=== PATIENT | male | born 1995 | race Two or more races ===

== ENCOUNTER 2023-04-04 03:38 | Emergency (ER) | payer SELFPAY ==
--- NOTE | ~2023-04-04 | CT_ITS ---
Non-contrast CT scan of the Abdomen and Pelvis Clinical indication: Right groin pain Technique: 2.5 mm axial scans were obtained through the abdomen and pelvis without intravenous or or al contrast. Dose reduction technique was used on this scan by utilizing automated exposure control a nd iterative reconstruction technique. The dose-length product (DLP) was 581.22 mGy-cm. Findings: Images through the lung bases reveal no abnormalities. There is a probable 2 mm distal right ureteral stone, with mild right hydroureteronephrosis. No left renal or left ureteral stone. No left hydronephrosis. The liver, spleen, pancreas, gallbladder, and adrenals appear normal. There is no aortic aneurysm. There is no evidence of bowel obstruction. Images through the pelvis were performed. There is no evidence of ascites or lymphadenopathy. Urinary bladder unremarkable. Prostate gland and seminal vesicles are unremarkable. Impression: 2 mm distal right ureteral stone with mild right hydroureteronephrosis. Reviewed, dictated and finalized at [facility]. Impression: 2 mm distal right ureteral stone with mild right hydroureteronephrosis.
[2023-04-04 03:42] VITALS: BP 141/71; PULSE 90; RESP 20; TEMP 36.5; O2SAT 95
[2023-04-04] MEDS: KETOROLAC (*BKC) 60 MG/2 ML VIAL IM (03:55)
[2023-04-04 04:11] VITALS: BP 139/88; PULSE 90; RESP 20; O2SAT 95
[2023-04-04 04:32] LABS: Bilirubin Urine Negative (Negative); Blood Urine 3+ (Negative); Color Urine Yellow (Yellow); Glucose Urine UA Negative (Negative); Ketones Urine Negative (Negative); Leukocyte Esterase Ur Negative LEU/UL (Negative); Nitrate Urine Negative (Negative); Protein Urine 1+ (Negative); Specific Grav Ur >= 1.030 (1.010-1.020); Urobilinogen Urine 0.2 mg/dL (0.2-1.0); pH Urine 5.5 (5.0-8.0)
[2023-04-04 04:39] LABS: Add Urine Microscopic? YES; Amorphous Sediment Urine Heavy; Appearance Urine Turbid (Clear); Bacteria Urine 4+ /hpf; Mucus Urine Heavy /lpf; RBC Urine >75 /hpf (0-2)
--- NOTE | 2023-04-04 04:53 | ED.ABDPAIN ---
HPI - Abdominal Pain General Chief Complaint: Abdominal Pain Stated Complaint: R Testicle Pain Source: patient Mode of arrival: ambulatory Limitations: no limitations History of Present Illness HPI narrative: this is a 28-year-old male that presents with some right flank pain that radiates into his right groin area with some pain that he rates at about a 10/10 with no nausea vomiting no suprapubic tenderness no chest pain no shortness breath no fever chills. MD elicited complaint: abdominal pain and flank pain Onset (ago): hour(s) Pain Consistency: constant Location: R flank and groin Related Data Allergies Allergy/AdvReac Type Severity Reaction Status Date / Time No Known Allergies Allergy Verified 04/04/23 03:42 Review of Systems Review of Systems: All systems reviewed & are unremarkable except as noted in HPI and below PMFSH Past Medical History Medical History Patient denies medical problems Exam Const: General: healthy appearing Nutritional Appearance: well nourished Orientation/consciousness: patient oriented x3 Limitations: no limitations HENMT: Head: normal to inspection Eyes: Conjunctivae: conjunctivae normal Neck: Neck: normal visual inspection Chest: Chest palpation & inspection: normal inspection of the chest Resp: Effort & Inspection: normal respiratory effort Auscultation: clear to auscultation bilaterally Cardio: Rate: regular rate Rhythm: regular rhythm GI: GI Palp: Yes Soft to palpation and Yes Tenderness to palpation present (GI) : General: Yes bladder normal to palpation Testes: Testes normal Urinary Catheter: Urinary Catheter: patent and draining and urine cloudy Back/Spine/Pelvis: Back: CVA tenderness Skin: General skin exam: normal color Rashes: no rashes Neuro: General: patient oriented x3 and moves all extremities Extrem: General: normal to inspection Psych: Mental Status: mental status grossly normal Course Course Emergency Course: patient received IM Toradol and pain has significantly improved has some urine consistent with urinary tract infection and CT scan reviewed with patient which shows a right UVJ 0.2cm stone with mild right hydronephrosis. Vital Signs Vital signs: Vital Signs Temperature 36.5 C 04/04/23 03:42 Pulse Rate 90 04/04/23 03:42 Respiratory Rate 20 04/04/23 03:42 Blood Pressure 141/71 H 04/04/23 03:42 Pulse Oximetry 95 04/04/23 03:42 Oxygen Delivery Room Air 04/04/23 03:42 Temperature 36.5 C 04/04/23 03:42 Pulse Rate 90 04/04/23 04:11 Respiratory Rate 20 04/04/23 04:11 Blood Pressure 139/88 04/04/23 04:11 Pulse Oximetry 95 04/04/23 04:11 Oxygen Delivery Room Air 04/04/23 04:11 MDM - Abdominal Pain Lab Data Labs: Lab Results 04/04/23 Range/Units 03:48 Urine Color Yellow (Yellow) Urine Appearance Turbid A (Clear) Urine pH 5.5 (5.0-8.0) Ur Specific [place] >= 1.030 H (1.010-1.020) Urine Protein 1+ H (Negative) Urine Glucose (UA) Negative (Negative) Urine Ketones Negative (Negative) Ur Blood (Man) 3+ H (Negative) Urine Nitrate Negative (Negative) Urine Bilirubin Negative (Negative) Urine Urobilinogen 0.2 (0.2-1.0) mg/dL Leukocyte Esterase Rfl Negative (Negative) VICKIE/UL Urine RBC >75 H (0-2) /hpf Amorphous Sediment Heavy H (None) Urine Bacteria 4+ H (None) /hpf Urine Mucus Heavy H /lpf Critical Care Time Critical Care Time Critical Care Time: No Discharge Plan Discharge Clinical Impression: Urolithiasis Qualifiers: Urinary calculus location: ureter Qualified Code(s): N20.1 - Calculus of ureter Patient Disposition: Home, Self-Care Condition: Stable Instructions: Antibiotic Form, Urinary Tract Infection in Men (ED), Ureteral Stones (ED) Additional Instructions: advised take medicine as prescribed and follow up with primary if symptoms p
[2023-04-04] MEDS: SODIUM CHLORIDE 0.9% IV 1,000 ML 999 ML IV CONT (04:56)
[2023-04-04 05:55] VITALS: BP 132/77; PULSE 80; RESP 20; TEMP 36.6; O2SAT 95
== END 2023-04-04 05:56 | disposition home or self-care (01) ==
PROVIDERS: Emergency Provider Emergency Medicine
DX: N13.2 Hydronephrosis with renal and ureteral calculous obstruction (principal)
CPT/HCPCS: 74176; 81001; 96365; 96372; 99284; J0696; J1885; J7030